=== PATIENT | female | born 1970 ===

== ENCOUNTER 2017-10-06 14:21 | Outpatient (CLI) | payer OTHER | END 2017-10-06 14:23 | disposition home or self-care (01) | LOC: EKG 14:21 | DX: R42 Dizziness and giddiness (principal); I10 Essential (primary) hypertension ==

== ENCOUNTER 2020-05-07 17:37 | Inpatient (IN) | payer OTHER ==
[2020-05-07] MEDS ORDERED: VITACEL TABLET1 EACH (17:54)
[2020-05-07] MEDS ORDERED: PERCOCET 5-3251 EACH (17:55)
[2020-05-07] MEDS ORDERED: SYNTHROID75 MCG (18:06)
== END 2020-05-11 16:22 | disposition home or self-care (01) | DRG 598 ==
LOC: SURH 17:37
PROVIDERS: ADMIT Internal Medicine; ATTEND Internal Medicine
PROC: 4A033R1 Measurement of Arterial Saturation, Peripheral, Percutaneous Approach (ICD-10-PCS; 2020-05-07)
PROC: 8E0ZXY6 Isolation (ICD-10-PCS; 2020-05-07)
PROC: 30233N1 Transfusion of Nonautologous Red Blood Cells into Peripheral Vein, Percutaneous Approach (ICD-10-PCS; principal; 2020-05-08)
PROC: 3E0F7SF Introduction of Other Gas into Respiratory Tract, Via Natural or Artificial Opening (ICD-10-PCS; 2020-05-08)
PROC: 3E0F7GC Introduction of Other Therapeutic Substance into Respiratory Tract, Via Natural or Artificial Opening (ICD-10-PCS; 2020-05-08)
DX: C50.412 Malignant neoplasm of upper-outer quadrant of left female breast (principal); C79.51 Secondary malignant neoplasm of bone; C78.7 Secondary malignant neoplasm of liver and intrahepatic bile duct; C77.1 Secondary and unspecified malignant neoplasm of intrathoracic lymph nodes; J91.0 Malignant pleural effusion; C79.52 Secondary malignant neoplasm of bone marrow; D63.0 Anemia in neoplastic disease; Z17.0 Estrogen receptor positive status [ER+]; E86.0 Dehydration; R09.02 Hypoxemia; G89.3 Neoplasm related pain (acute) (chronic)